=== PATIENT | female | born 1990 | race American Indian/Alaskan Native ===

== ENCOUNTER 2021-04-13 19:55 | Outpatient (CLI) | payer OTHER | END 2021-04-14 12:41 | disposition home or self-care (01) | LOC: OBS/DEL 19:55 | PROVIDERS: ATTEND Obstetrics & Gynecology Maternal & Fetal Medicine | DX: O26.893 Other specified pregnancy related conditions, third trimester (principal); Z04.3 Encounter for examination and observation following other accident; Z3A.33 33 weeks gestation of pregnancy; W18.09XA Striking against other object with subsequent fall, initial encounter; Y93.89 Activity, other specified; Y92.098 Other place in other non-institutional residence as the place of occurrence of the external cause; Y99.8 Other external cause status ==

== ENCOUNTER 2021-04-30 10:56 | Outpatient (CLI) | payer OTHER | END 2021-04-30 11:29 | disposition home or self-care (01) | LOC: NST 10:56 | PROVIDERS: ATTEND Obstetrics & Gynecology Maternal & Fetal Medicine | DX: Z34.83 Encounter for supervision of other normal pregnancy, third trimester (principal) ==

== ENCOUNTER 2021-05-15 08:00 | Inpatient (IN) | payer OTHER ==
[~2021-05-15] VITALS: Ht 165.1 cm; Wt 2.7 kg
[2021-05-15] MEDS ORDERED: ZYRTEC PO (10:59)
[2021-05-15] MEDS ORDERED: IRON PO (10:59)
[2021-05-15] MEDS ORDERED: PRENA PO (10:59)
[2021-05-21] MEDS ORDERED: CONCEPT DHA CA1 EACH (16:08)
[2021-05-21] MEDS ORDERED: IRON236 MG PO (16:09)
[2021-05-21] MEDS ORDERED: ZYRTEC10 M3 PO (16:10)
== END 2021-05-23 13:22 | disposition home or self-care (01) | DRG 788 ==
LOC: LDR 05-21 08:00 → O/R 05-21 10:03 → OB/GYN 05-21 10:03
PROVIDERS: ADMIT Obstetrics & Gynecology; ATTEND Obstetrics & Gynecology
PROC: 4A1HXFZ Monitoring of Products of Conception, Cardiac Rhythm, External Approach (ICD-10-PCS; 2021-05-21)
PROC: 10D00Z1 Extraction of Products of Conception, Low, Open Approach (ICD-10-PCS; principal; 2021-05-21 08:30)
DX: O32.1XX0 Maternal care for breech presentation, not applicable or unspecified (principal); Z3A.39 39 weeks gestation of pregnancy; Z37.0 Single live birth; Z20.822 Contact with and (suspected) exposure to COVID-19